=== PATIENT | male | born 1980 | race Caucasian/White ===

== ENCOUNTER 2021-04-02 10:39 | Emergency (ER) | payer MEDICAID, SELFPAY ==
--- NOTE | ~2021-04-02 | CT_ITS ---
EXAMINATION: CT abdomen pelvis w con DATE: 04/02/2021 15:12 INDICATION: Low abdominal pain. Dysuria. TECHNIQUE: Computed tomography (CT) of the abdomen and pelvis was performed with 100 mL Omnipaque 350 intravenous contrast. Automated exposure control and iterative reconstruction technique were employe d. The dose-length product was 878.89 mGy-cm. COMPARISON: None. FINDINGS: The visualized portions of the lung bases demonstrate calcified left lower lobe nodules, co nsistent with old granulomatous disease. No pleural effusion. The heart size is normal. No pericardia l effusion. There is a 5 mm cyst in the liver. The gallbladder, spleen, pancreas, and adrenal glands are normal. The inferior poles of the kidneys are fused across the midline (horseshoe kidney). There is a 4 mm stone at right ureterovesicular junction. There is mild right hydronephrosis and hydrourete r. There is a 2 mm stone in right kidney. There are no dilated loops of bowel. The appendix is normal . There are no pathologically enlarged lymph nodes. There is no free intraperitoneal fluid. There is moderate lower lumbar spondylosis., IMPRESSION: 1. 4 mm stone at right ureterovesicular junction with mild right hydronephrosis and hydroureter. 2. 2 mm nonobstructing right kidney stone. Reviewed, dictated and finalized at location A.
[2021-04-02 11:27] VITALS: BP 127/93; PULSE 92; RESP 20; TEMP 35.8; O2SAT 98
[2021-04-02 12:14] LABS: Basophils Percent Auto 0.3 % (0.2-1.2); Eosinophils Absolute Auto 0.1 K/mm3 (0-0.3); Eosinophils Percent Auto 0.5 % (0-4.4); Hematocrit 44.7 % (42.0-52.0); Hemoglobin 14.8 g/dL (14.0-18.0); Immature Granulocyte Absolute 0.05 K/mm3 (0.00-0.031); Immature Granulocyte Percent A 0.4 % (0-0.5); Lymphocytes Absolute Auto 0.98 K/mm3 (0.9-3.2); Mean Corpuscular HGB Conc 33.1 g/dl (32-36); Mean Corpuscular Hemoglobin 31.2 pg (26-34); Mean Corpuscular Volume 94.1 fl (80-100); Mean Platelet Volume 9.1 fl (7.4-10.4); Monocytes Absolute Auto 0.7 K/mm3 (0.1-0.6); Monocytes Percent Auto 5.4 % (2.6-8.5); Neutrophils Absolute Auto 10.5 K/mm3 (1.3-6.7); Neutrophils Percent Auto 85.4 % (45.5-73.1); Platelet Count Result 245 k/mm3 (150-375); Red Blood Count 4.75 M/mm3 (4.6-6.20); Red Cell Distribution Width 12.3 % (11.5-14.5); White Blood Count 12.3 K/mm3 (4.5-10.0)
[2021-04-02 12:19] LABS: Anion Gap 8 mmol/L (8-16); Blood Urea Nitrogen 21 mg/dL (9-20); Calcium 8.9 mg/dL (8.4-10.2); Carbon Dioxide 22 mmol/L (22-30); Chloride 110 mmol/L (98-107); Estimated CRCL calculation 104 ml/min; Estimated Glomerular Filt Rate > 60; Glucose 115 mg/dL (75-110); Potassium 4.3 mmol/L (3.4-5.0); Sodium 140 mmol/L (137-145)
[2021-04-02 12:23] LABS: Add Urine Microscopic? YES; Amorphous Sediment Urine Moderate; Appearance Urine Turbid (Clear); Bilirubin Urine Negative (Negative); Blood Urine Negative (Negative); Color Urine Yellow (Yellow); Glucose Urine UA Negative (Negative); Ketones Urine Negative (Negative); Leukocyte Esterase Ur Negative LEU/UL (Negative); Mucus Urine Moderate /lpf; Nitrate Urine Negative (Negative); Protein Urine 1+ mg/dL (Negative)
[2021-04-02 12:32] LABS: Specific Grav Ur 1.032 (1.001-1.035)
[2021-04-02 14:43] VITALS: BP 138/89; PULSE 84; RESP 16; O2SAT 97
--- NOTE | 2021-04-02 15:30 | ED.GENADULT ---
HPI - General Adult General Chief complaint: Abdominal Pain Stated complaint: poss kidney stone Time Seen by Provider: 04/02/21 14:03 History of Present Illness HPI narrative: Patient is a 41-year-old male who presents ER with abdominal pain. Ongoing over the last week and a half. Intermittent. Occasionally associated with sweats as well as nausea and vomiting. Reports urinary frequency. At 1 point he did have dysuria and took some Azo. No history of UTI. Concerned he may have a kidney stone but has never passed one before. Related Data Allergies Allergy/AdvReac Type Severity Reaction Status Date / Time amoxicillin Allergy Unknown Verified 04/02/21 11:53 Review of Systems Review of Systems: All systems reviewed & are unremarkable except as noted in HPI and below Constitutional: Constitutional: Denies chills and Denies fever(s) Gastrointestinal: Gastrointestinal: Reports abdominal pain, Denies diarrhea, Reports nausea and Reports vomiting Genitourinary: Genitourinary: Denies hematuria, Reports oliguria, Reports dysuria, Denies penile discharge, Reports urinary frequency and Denies urinary incontinence Musculoskeletal: Musculoskeletal: Denies back pain and Denies muscle cramps PMFSH Past Medical History Medical History (Updated 04/02/21 @ 15:36 by Zaheer Dennis MD) Healthy adult male Surgical History Surgical History (Updated 04/02/21 @ 15:32 by Zaheer Dennis MD) No history of previous surgery Social History Social History (Updated 04/02/21 @ 15:32 by Zaheer Dennis MD) Substance use: never Gender identity (if verbalized by the patient): Male Exam Narrative: Exam Narrative: GENERAL: Well-appearing, well-nourished, and in no acute distress. HEAD: Normocephalic, atraumatic. ENT: Mucous membranes moist. CHEST: Clear to auscultation. No respiratory distress. HEART: Regular rate and rhythm. Normal peripheral pulses. ABDOMEN: Soft, nontender, nondistended. No cva tenderness EXTREMITIES: Normal range of motion. No edema. SKIN: Warm, dry, no rash. NEURO: Alert and oriented x3. PSYCH: Normal mood and affect. Course Course Emergency Course: Patient informed of results. Pain. This time. Discussed treatment plan and he verbalized understanding. 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 Vital Signs Vital signs: Vital Signs Temperature 96.5 F L 04/02/21 11:27 Pulse Rate 92 04/02/21 11:27 Respiratory Rate 20 04/02/21 11:27 Blood Pressure 127/93 H 04/02/21 11:27 Pulse Oximetry 98 04/02/21 11:27 Temperature 96.5 F L 04/02/21 11:27 Pulse Rate 84 04/02/21 14:43 Respiratory Rate 16 04/02/21 14:43 Blood Pressure 138/89 04/02/21 14:43 Pulse Oximetry 97 04/02/21 14:43 Medical Decision Making Vital Signs Vital Signs: Vital Signs Temperature 96.5 F L 04/02/21 11:27 Pulse Rate 92 04/02/21 11:27 Respiratory Rate 20 04/02/21 11:27 Blood Pressure 127/93 H 04/02/21 11:27 Pulse Oximetry 98 04/02/21 11:27 Temperature 96.5 F L 04/02/21 11:27 Pulse Rate 84 04/02/21 14:43 Respiratory Rate 16 04/02/21 14:43 Blood Pressure 138/89 04/02/21 14:43 Pulse Oximetry 97 04/02/21 14:43 Lab Data Result diagrams: 04/02/21 11:55 04/02/21 11:55 Labs: Lab Results 04/02/21 04/02/21 04/02/21 Range/Units 11:55 11:55 11:55 WBC 12.3 H (4.5-10.0) K/mm3 RBC 4.75 (4.6-6.20) M/mm3 Hgb 14.8 (14.0-18.0) g/dL Hct 44.7 (42.0-52.0) % MCV 94.1 (80-100) fl MCH 31.2 (26-34) pg MCHC 33.1 (32-36) g/dl RDW 12.3 (11.5-14.5) % Plt Count 245 (150-375) k/mm3 MPV 9.1 (7.4-10.4) fl Immature Gran % (Auto) 0.4 (0-0.5) % Neut % (Auto) 85.4 H (45.5-73.1) % Lymph % (Auto) 8.0 L (18.3-44.2) % [place] % (Auto) 5.4 (2.6-8.5) % Eos % (Auto) 0.5 (0-4.4) % Baso % (Auto) 0.3 (0.2-1.2) % Lymph # (Auto) 0.98 (0.9-3.2) K/mm3
[2021-04-02] MEDS: SODIUM CHLORIDE 0.9% IV 1,000 ML 999 ML IV CONT (15:38)
[2021-04-02 16:35] VITALS: BP 142/89; PULSE 74; RESP 18; O2SAT 98
== END 2021-04-02 16:38 | disposition home or self-care (01) ==
PROVIDERS: Emergency Provider Emergency Medicine
DX: N13.2 Hydronephrosis with renal and ureteral calculous obstruction (principal)
CPT/HCPCS: 36415; 74177; 80048; 81001; 85025; 96360; 99284; J7030; Q9967

== ENCOUNTER 2021-07-26 14:08 | Emergency (ER) | payer OTHER, SELFPAY ==
[2021-07-26 14:09] VITALS: BP 129/80; PULSE 89; RESP 16; TEMP 36.5; O2SAT 99
[2021-07-26] MEDS: TETANUS,DIPHTHERIA,AC PERTUSSIS ADULT (0.5 ML) BOOSTRIX IM (15:27)
--- NOTE | 2021-07-26 15:28 | ED.WOUNDLAC ---
HPI - Wound/Laceration General Chief Complaint: Wound/Laceration <Kalina Riddle PA-C - Last Filed: 07/26/21 15:41> Stated Complaint: LEFT THUMB LAC <Kalina Riddle PA-C - Last Filed: 07/26/21 15:41> Time Seen by Provider: 07/26/21 14:49 <Kalina Riddle PA-C - Last Filed: 07/26/21 15:41> Source: patient <LEONARDO Bryan Last Filed: 07/26/21 15:41> Mode of arrival: ambulatory <Kalina Riddle PA-C - Last Filed: 07/26/21 15:41> Limitations: no limitations <Kalina Riddle PA-C - Last Filed: 07/26/21 15:41> History of Present Illness HPI narrative: This is a 41-year-old male that presents to the emergency department for laceration sustained last night. Reports he accidentally cut himself on a metal can. Reports a laceration to the left thumb. He tried to manage the wound at home. It reopened today which prompted him to be seen. He is not up-to-date on tetanus. Denies decreased range of motion or numbness. <Kalina Riddle PA-C - Last Filed: 07/26/21 15:41> Related Data Allergies/Adverse Reactions: Allergies Allergy/AdvReac Type Severity Reaction Status Date / Time amoxicillin Allergy Unknown Verified 07/26/21 14:09 <Kalina Riddle PA-C - Last Filed: 07/26/21 15:41> Review of Systems Review of Systems: CONSTITUTIONAL: Denies fever SKIN: Reports laceration MUSCULOSKELETAL: Denies joint pain, or myalgia. NEUROLOGIC: Denies numbness <Kalina Riddle PA-C - Last Filed: 07/26/21 15:41> All systems reviewed & are unremarkable except as noted in HPI and below <Kalina Riddle PA-C - Last Filed: 07/26/21 15:41> [facility] Past Medical History Medical History: Medical History (Updated 07/26/21 @ 15:29 by Kalina L. Riddle, PA-C) Healthy adult male <Kalina Riddle PA-C - Last Filed: 07/26/21 15:41> Surgical History Surgical History: Surgical History (Updated 04/02/21 @ 15:32 by Zaheer Dennis MD) No history of previous surgery <Kalina Riddle PA-C - Last Filed: 07/26/21 15:41> Social History Social History: Social History (Updated 04/02/21 @ 15:32 by Zaheer Dennis MD) Substance use: never Gender identity (if verbalized by the patient): Male <Kalina Riddle PA-C - Last Filed: 07/26/21 15:41> Exam Narrative: GENERAL: Well-appearing, well-nourished, and in no acute distress. HEAD: Normocephalic, atraumatic. EYES: EOMI. EXTREMITIES: Normal range of motion. No edema. 2cm linear laceration to the subcutaneous tissue to the base of the left first finger SKIN: Warm, dry, no rash. NEURO: No focal deficits. Alert and oriented x3. 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 I was available for evaluation and consultation, I agree with the documentation as above <Malcolm Hurst MD - Last Filed: 07/26/21 18:39> Vital Signs Vital signs: Vital Signs Temperature 36.5 C 07/26/21 14:09 Pulse Rate 89 07/26/21 14:09 Respiratory Rate 16 07/26/21 14:09 Blood Pressure 129/80 07/26/21 14:09 Pulse Oximetry 99 07/26/21 14:09 Temperature 36.5 C 07/26/21 14:09 Pulse Rate 89 07/26/21 14:09 Respiratory Rate 16 07/26/21 14:09 Blood Pressure 129/80 07/26/21 14:09 Pulse Oximetry 99 07/26/21 14:09 <Kalina Riddle PA-C - Last Filed: 07/26/21 15:41> Vital Signs Temperature 36.5 C 07/26/21 14:09 Pulse Rate 89 07/26/21 14:09 Respiratory Rate 16 07/26/21 14:09 Blood Pressure 129/80 07/26/21 14:09 Pulse Oximetry 99 07/26/21 14:09 Temperature 36.5 C 07/26/21 14:09 Pulse Rate 89 07/26/21 14:09 Respiratory Rate 16 07/26/21 14:09 Blood Pressure 129/80 07/26/21 14:09 Pulse Oximetry 99 07/26/21 14:09 <Malcolm Hurst MD - Last Filed: 07/26/21 18:39> Procedures Laceration Laceration 1: Date:
== END 2021-07-26 15:47 | disposition home or self-care (01) ==
PROVIDERS: Emergency Provider Emergency Medicine; PCP Nurse Practitioner Family
DX: S61.012A Laceration without foreign body of left thumb without damage to nail, initial encounter (principal); W26.8XXA Contact with other sharp object(s), not elsewhere classified, initial encounter; Z23 Encounter for immunization
CPT/HCPCS: 90471; 90715; 99283

== ENCOUNTER 2022-04-08 11:43 | Outpatient (CLI) | payer OTHER, SELFPAY ==
--- NOTE | ~2022-04-08 | XR_ITS ---
XR foot LT min 3V DATE: 04/08/2022 12:14 INDICATION: Fifth toe pain, swelling TECHNIQUE: 4 views COMPARISON: None FINDINGS: There is prominent soft tissue swelling lateral to the fifth metatarsophalangeal joint. No fracture or dislocation, periosteal reaction or bone destruction of the left foot is detected. Joint spaces are preserved. No erosive changes are noted. Exaggerated arch of the foot. IMPRESSION: Exaggerated arch Nonspecific soft tissue swelling lateral to the right fifth metatarsophalangeal area Reviewed, dictated and finalized at location A.
--- NOTE | ~2022-04-08 | XR_ITS ---
XR_CERV2-3V_CR DATE: 04/08/2022 12:13 INDICATION: Bilateral arm numbness and tingling. No injury. TECHNIQUE: AP, open-mouth and lateral views COMPARISON: None FINDINGS: C1 and C2 are normally aligned and the odontoid process is intact. No fracture or dislocati on or locked facet or prevertebral soft tissue swelling is detected. There is mild loss of disc space height and mild retrolisthesis at C4-5, with mild bilateral uncovert ebral joint spurring at this level. Remaining cervical interspaces are relatively preserved. IMPRESSION: Mild degenerative disc disease and retrolisthesis and uncovertebral joint spurring at C4- 5 Reviewed, dictated and finalized at Location A. Reviewed, dictated and finalized at location A. IMPRESSION: Mild degenerative disc disease and retrolisthesis and uncovertebral joint spurring at C4-5
== END 2022-04-08 11:44 | disposition home or self-care (01) ==
PROVIDERS: PCP Nurse Practitioner Family; Visit Provider Nurse Practitioner Family
DX: M47.812 Spondylosis without myelopathy or radiculopathy, cervical region (principal); R20.2 Paresthesia of skin
CPT/HCPCS: 72040; 73630

== ENCOUNTER 2022-07-08 15:30 | Outpatient (RCR) | payer OTHER, SELFPAY ==
--- NOTE | 2022-06-17 16:40 | PTOPEVAL1 ---
Assessment and note entered by Arleen Martinez, PT Evaluation Information Assessment Status Evaluation Reported Pain Level Pain Score 2,4: Self Report Additional Pain Score Comments pt reports never has tingling in upper arms. notes most symptoms with sitting, laying in bed, and driving, not while at work Reports also tingling in LLE at times States currently his back and LLE bother him more than the cervical spine. Assessment PT Clinical Summary Pt presents w/ c/o chronic diffuse pain throughout cervical, thoracic, and lumbar spine, tingling/ numbness of L LE in L5 dermatome pattern, B UE below elbow only in C7 dermatome/ulnar nerve pattern. Pt demo's leg length discrepancy R LE longer than L LE, compensatory lumbar and thoracic curvature, rounded shoulders w/ forward head, hypermobility lumbar spine w/ compensatory hypomobility thoracic spine, muscle tone globally paraspinal muscles, weakness R glute max and med, severely weakened transverse abdominal muscles all leading to poor core stability. Pt's postural alignment, functional scoliosis secondary to leg length difference, poor lumbopelvic muscle strength and core stability, poor postures in cervical spine appear today to be causes of pt's discomfort at this time. Thus pt would benefit from therapy to address these deficits and improve alignment, strength, and thus decrease pain and improve function. Plan of Care Interventions Check Out for Orthotic/Pr,Electrical Stimulation, Hot Pack/Cold Pack,Manual Therapy,Therapeutic Activities,Therapeutic Exercise,Self-Care/Home Management,Other Other Interventions Taping, bracing, heel lift PT Services Indicated Yes These treatments will address the objective and functional deficits as defined above. The patient will be advanced safely and appropriately in order for the patient to progress towards his/her prior level of function. Additional exercises will be introduced and as well as a comprehensive home exercise program upon discharge, if needed, ?to ensure carryover of functional gains achieved in the clinic. This treatment plan has been reviewed and agreement upon by the patient.
--- NOTE | 2022-06-19 16:05 | BUPTOPEVAL1 ---
Assessment and note entered by Arleen Martinez, PT Evaluation Information Assessment Status Evaluation Reported Pain Level Pain Score 2,4: Self Report Additional Pain Score Comments pt reports never has tingling in upper arms. notes most symptoms with sitting, laying in bed, and driving, not while at work Reports also tingling in LLE at times Assessment PT Clinical Summary Pt presents w/ c/o chronic diffuse pain throughout cervical, thoracic, and lumbar spine, tingling/ numbness of L LE in L5 dermatome pattern, B UE below elbow only in C7 dermatome/ulnar nerve pattern. Pt demo's leg length discrepancy R LE longer than L LE, compensatory lumbar and thoracic curvature, rounded shoulders w/ forward head, hypermobility lumbar spine w/ compensatory hypomobility thoracic spine, muscle tone globally paraspinal muscles, weakness R glute max and med, severely weakened transverse abdominal muscles all leading to poor core stability. Pt's postural alignment, functional scoliosis secondary to leg length difference, poor lumbopelvic muscle strength and core stability, poor postures in cervical spine appear today to be causes of pt's discomfort at this time. Thus pt would benefit from therapy to address these deficits and improve alignment, strength, and thus decrease pain and improve function. Plan of Care Interventions Check Out for Orthotic/Pr,Electrical Stimulation, Hot Pack/Cold Pack,Manual Therapy,Therapeutic Activities,Therapeutic Exercise,Self-Care/Home Management,Other Other Interventions Taping, bracing, heel lift PT Services Indicated Yes These treatments will address the objective and functional deficits as defined above. The patient will be advanced safely and appropriately in order for the patient to progress towards his/her prior level of function. Additional exercises will be introduced and as well as a comprehensive home exercise program upon discharge, if needed, ?to ensure carryover of functional gains achieved in the clinic. This treatment plan has been reviewed and agreement upon by the patient.
--- NOTE | 2022-07-15 09:01 | PCPTNOTE ---
Patient called & cancelled scheduled appointment this date due to not feeling and having a fever.
--- NOTE | 2022-07-22 12:38 | PCPTNOTE ---
Patient called & cancelled scheduled appointment this date due to still being ill.
--- NOTE | 2022-07-29 12:59 | PCPTNOTE ---
Patient did not show up for scheduled appointment this date. Called patient number [phone] and significant other Nayeli Forbes's number [phone], but message reports his number is no longer in service and her number reports the mailbox is full so unable to leave any message to schedule new appointments or ask questions about the order for a TENS unit.
--- NOTE | 2022-09-08 11:45 | PTOPDC ---
Assessment and note entered by Arleen Martinez, PT Assessment Status Discharge - Pt Not Present Assessment PT Clinical Summary Pt presented consistently for 5 visits on initiation of therapy. He cancelled his sixth visit and has not presented to therapy in two months. Thus patient is being discharged from therapy POC d/t nonattendance.
== END 2022-09-08 13:32 | disposition home or self-care (01) ==
LOC: ANHPT 15:30
PROVIDERS: PCP Nurse Practitioner Family; Visit Provider Nurse Practitioner Family
DX: M46.92 Unspecified inflammatory spondylopathy, cervical region (principal)
CPT/HCPCS: 97014; 97110; 97140; 97162; 99199; G0283

== ENCOUNTER 2022-11-24 16:10 | Emergency (ER) | payer OTHER, SELFPAY ==
[2022-11-24 16:41] VITALS: BP 140/79; PULSE 93; RESP 18; TEMP 36.3; O2SAT 96
--- NOTE | 2022-11-24 17:18 | ED.URI ---
HPI - URI/Sore Throat General Chief Complaint: Upper Respiratory Infection Stated Complaint: flu like symptoms Time Seen by Provider: 11/24/22 17:19 Source: patient, RN notes reviewed and old records reviewed Mode of arrival: ambulatory Limitations: no limitations History of Present Illness HPI Narrative: 42-year-old male who presents to [facility] with complaints of 3 day history of cough with expectoration green phlegm with noted some scattered wheezing throughout his lungs on auscultation with no acute dyspnea noted or verbalized. Patient denies any known fevers, chills or sweats or any body aches, denies sore throat, reports frontal headache. Patient reports that he has been taking Ibuprofen, DayQuil and NyQuil for his symptoms.Patient reports that he quit tobacco use approximately 2 weeks ago. MD elicited complaint: cough and sore throat Onset (ago): day(s) (3) Pain scale (0-10): 4 Able to tolerate fluids by mouth: Yes Treatments prior to arrival: ibuprofen and cold medicine Related Data Home Medications Medication Instructions Recorded Confirmed diclofenac sodium 75 mg 75 mg PO BID 11/24/22 11/24/22 tablet,delayed release trazodone 50 mg tablet 50 mg PO HS 11/24/22 11/24/22 Allergies Allergy/AdvReac Type Severity Reaction Status Date / Time No Known Allergies Allergy Verified 11/24/22 16:58 Review of Systems Review of Systems: CONSTITUTIONAL: Denies malaise, chills, sweats, or fever. EYES: Denies visual changes, redness, or discharge. ENT: Reports rhinorrhea, congestion, no sinus pain,no otalgia no sore throat. CARDIOVASCULAR: Denies chest pain, palpitations, or edema. RESPIRATORY: Reports productive cough.? Denies dyspnea. GASTROINTESTINAL: Denies abdominal pain, nausea, vomiting, diarrhea SKIN: Denies rash or itching. MUSCULOSKELETAL: Denies myalgia. NEUROLOGIC: reports headache. All systems reviewed & are unremarkable except as noted in HPI and below PMFSH Past Medical History Medical History (Updated 11/25/22 @ 09:38 by Marjorie Dunn NP) Anxiety and depression Back pain Kidney stones Restless leg syndrome Upper extremity injury surgical repair Social History Social History (Updated 11/25/22 @ 09:37 by Marjorie Dunn NP) Smoking status: Former smoker Additional smoking assessment comments: quit 11/10/2022 Alcohol intake: unknown Substance use type: marijuana Living arrangements: with family Gender identity (if verbalized by the patient): Male Comments At time of signature, agree with nursing past medical, surgical, social and family history. There is no relevant family history pertinent to the presenting complaint Exam Narrative: GENERAL: Well-appearing, well-nourished, and in no acute distress. HEAD: Normocephalic EYES: PERRLA, conjunctivae clear ENT: Nares clear, turbinates edematous and erythematous, clear to light yellow discharge. Mucous membranes moist. TM pearly henriquez with dull light reflex bilaterally; no tragal tenderness. Oropharynx erythematous without lesions. Tonsils not enlarged and without exudate, no drooling, positive hoarseness, no trismus, uvula midline.post nasal drainage NECK: Supple. No lymphadenopathy CHEST: scattered wheezes noted on auscultation, breath sounds equal. wheezing, no rhonchi, rales, or stridor. No respiratory distress, speaks in full sentences. harsh cough noted with green phlegm,SAO2 96% on room air HEART: Regular rate and rhythm. No murmur heard. SKIN: Warm, dry, no rash. NEURO: Alert and oriented x3. PSYCH: Normal mood and affect Course Course Emergency Course: Patient is aware of diagnosis, understands and agrees to treatment plan.? Anticipatory guidance given.? Patient agrees to follow-up as directed and is aware of reasons to seek care at the emergency department. Portions of this record may have been created with voice recognition software Level of Care: Express Care Visit Vital Sign
== END 2022-11-24 17:30 | disposition home or self-care (01) ==
PROVIDERS: Emergency Provider Registered Nurse; PCP Nurse Practitioner Family
DX: J06.9 Acute upper respiratory infection, unspecified (principal); J40 Bronchitis, not specified as acute or chronic; F41.9 Anxiety disorder, unspecified; F32.9 Major depressive disorder, single episode, unspecified; Z87.891 Personal history of nicotine dependence
CPT/HCPCS: 99213; G0463

== ENCOUNTER 2023-11-23 10:08 | Outpatient (CLI) | payer OTHER, SELFPAY ==
--- NOTE | 2023-11-23 11:02 | ECG_ITS ---
Measurements Intervals [place] Rate: 77 P: 64 [place]: 146 QRS: 75 QRSD: 83 T: 59 QT: 355 QTc: 403 Interpretive Statements SINUS RHYTHM POSSIBLE LEFT ATRIAL ENLARGEMENT [-0.1mV P WAVE IN V1/V2] NO PREVIOUS ECG AVAILABLE FOR COMPARISON Electronically Signed On 11-23-2023 12:46:36 FOOD DEHYDRATOR OPERATOR by Ingrid Vivar M.D.
== END 2023-11-23 10:09 | disposition home or self-care (01) ==
PROVIDERS: PCP Nurse Practitioner Family; Visit Provider Family Medicine
DX: I00 Rheumatic fever without heart involvement (principal); R93.1 Abnormal findings on diagnostic imaging of heart and coronary circulation
CPT/HCPCS: 93005